=== PATIENT | male | born 1985 | race Caucasian/White ===

== ENCOUNTER 2021-06-24 16:52 | Inpatient (IN) | payer OTHER, SELFPAY ==
[2021-06-24] VITALS (14 sets, daily range): BP systolic 91–120; BP diastolic 60–73; PULSE 88–125; RESP 17–22; TEMP 37.3–37.7; O2SAT 96–100
--- NOTE | ~2021-06-24 | XR_ITS ---
EXAMINATION: XR chest 2V DATE: 06/26/2021 12:37 INDICATION: Left hemiparesis. Hypertension. TECHNIQUE: Frontal and lateral views of the chest were obtained. COMPARISON: Chest single view 06/24/2021, CT abdomen and pelvis 06/24/2021 FINDINGS: There are airspace opacities in the mid and lower lung zones, right worse than left. No ple ural effusion or pneumothorax. The heart size is normal. There are prominent paracardial fat pads. IMPRESSION: 1. Airspace opacities in the mid and lower lung zones, right worse than left with worsening on the ri ght, consistent with pneumonia. Reviewed, dictated and finalized at location A. TH CARE ADMINISTRATOR IMPRESSION: 1. Airspace opacities in the mid and lower lung zones, right worse than left wi th worsening on the right, consistent with pneumonia.
--- NOTE | ~2021-06-24 | XR_ITS ---
EXAMINATION: XR chest 1V portable EXAM DATE: 06/24/2021 19:52 INDICATION: Chest discomfort, fever and low urine output. TECHNIQUE: Portable AP frontal chest x-ray was obtained. There is no prior study for comparison. FINDINGS: There is some increased density suspected over the medial aspect of the right lower lung zo ne, could be pneumonia or atelectasis. The cardiomediastinal silhouette is prominent but magnified on this AP technique. There is no pneumothorax suspected. There are no pleural effusions. There are no osseous abnormalities identified. IMPRESSION: Possible right lower lobe segmental pneumonia or atelectasis. Reviewed, dictated and finalized at location A. TOGGLER
--- NOTE | ~2021-06-24 | NM_ITS ---
EXAMINATION: NM pulmonary perfusion DATE: 06/26/2021 12:47 INDICATION: Chest pain. TECHNIQUE: 5.15 mCi Tc-99m MAA was administered intravenously for perfusion images. Scintigraphic im ages of the chest were obtained. COMPARISON: Chest 2 views 06/26/2021 FINDINGS: Perfusion images show matched moderate sized and large defects in right lower lobe and a matched smal l defect in left lower lobe. IMPRESSION: 1. Nondiagnostic (intermediate probability for pulmonary embolism). Reviewed, dictated and finalized at location A. NCED MANUFACTURING VICE PRESIDENT
--- NOTE | ~2021-06-24 | CT_ITS ---
EXAMINATION: CT abdomen pelvis wo con EXAM DATE: 06/24/2021 23:26 INDICATION: hematuria, renal failure, and nausea. TECHNIQUE: Spiral CT of the abdomen and pelvis was performed without contrast. Axial, coronal and sag ittal images were reviewed. The dose-length product (DLP) for this examination was 920.47 mGy-cm. T he exposure was tailored according to patient size (auto mA exposure control), and iterative reconstr uction (ASIR) was used as additional dose reduction technique. There is no prior study for compariso n. FINDINGS: There is right lower lobe posterior medial segmental consolidation, appearance most consist ent with bacterial pneumonia. Please clinically correlate. There is no nephrolithiasis or hydronephro sis. The prostate is unremarkable. The bladder is unremarkable. The liver, spleen, adrenal glands and pancreas are unremarkable. Gallbladder is unremarkable. No biliary obstruction. There is no r etroperitoneal or pelvic lymphadenopathy. The appendix is normal. The stomach and small bowel are unremarkable. There is expected amount of c olonic stool. No free intraperitoneal gas. The heart is normal in size. There are no pericardial or pleural effusions. The bones are unremarkable. Several small pelvic sclerotic foci probably bone islands. IMPRESSION: 1. Right posteromedial lobe consolidation likely bacterial pneumonia. 2. No nephrolithiasis, hydronephrosis or acute intra-abdominal findings. Reviewed, dictated and finalized at location A. L PASTER
--- NOTE | 2021-06-24 19:44 | ED.GENADULT ---
HPI - General Adult General Chief complaint: Urogenital-Male <ZAY Tsang Last Filed: 06/24/21 22:49> Stated complaint: blood in urine <ZAY Tsang Last Filed: 06/24/21 22:49> Time Seen by Provider: 06/24/21 19:34 <ZAY Tsang Last Filed: 06/24/21 22:49> Source: patient <ZAY Tsang Last Filed: 06/24/21 22:49> Mode of arrival: ambulatory <ZAY Tsang Last Filed: 06/24/21 22:49> Limitations: no limitations <ZAY Tsang Last Filed: 06/24/21 22:49> History of Present Illness HPI narrative: This is a 35-year-old male that presents to the emergency department for fevers. Present over the last week. Reports he was evaluated at urgent care for this and told he had blood in his urine. Also reports some nausea. Denies sore throat, cough, abdominal pain, or vomiting. <ZAY Tsang Last Filed: 06/24/21 22:49> Related Data Home medications: Home Medications Medication Instructions Recorded Confirmed lisinopril 06/24/21 <ZAY Tsang Last Filed: 06/24/21 22:49> Allergies/adverse reactions: Allergies Allergy/AdvReac Type Severity Reaction Status Date / Time shrimp Allergy Swelling Verified 06/24/21 20:34 of Lip/Tongue/Throat <ZAY Tsang Last Filed: 06/24/21 22:49> Review of Systems Review of Systems: CONSTITUTIONAL: Reports fever ENT: Denies rhinorrhea, congestion, sore throat RESPIRATORY: Denies cough GASTROINTESTINAL: Denies abdominal pain, nausea, vomiting GENITOURINARY: Reports hematuria. Denies dysuria <ZAY Tsang Last Filed: 06/24/21 22:49> All systems reviewed & are unremarkable except as noted in HPI and below <ZAY Tsang Last Filed: 06/24/21 22:49> PMF Past Medical History Medical History: Medical History (Updated 06/24/21 @ 22:43 by Joanne Tsang PA-C) History of stroke <Joanne Tsang PA-C - Last Filed: 06/24/21 22:49> Social History Social History: Social History (Updated 06/24/21 @ 19:45 by Joanne Tsang PA-C) Smoking status: Never smoker <Joanne Tsang PA-C - Last Filed: 06/24/21 22:49> Exam Narrative: GENERAL: Well-appearing, well-nourished, and in no acute distress. HEAD: Normocephalic, atraumatic. EYES: EOMI. ENT: Nares clear, no rhinorrhea or epistaxis. Mucous membranes moist. Oropharynx without tonsillar hypertrophy exudate or other lesions. Bilateral TMs pearly ordonez non-bulging NECK: Supple. No adenopathy or masses. CHEST: Clear to auscultation. No respiratory distress. No wheezes rales or rhonchi HEART: Regular rate and rhythm. No murmur heard. Normal peripheral pulses. ABDOMEN: Soft, nontender, nondistended, normal active bowel sounds. No CVA tenderness EXTREMITIES: Normal range of motion. No edema. SKIN: Warm, dry, no rash. NEURO: Alert and oriented x3. PSYCH: Normal mood and affect <Joanne Tsang PA-C - Last Filed: 06/24/21 22:49> Course Consultations Consultation #1: Spoke with hospitalist about patient and workup who accepts admission. <Joanne Tsang PA-C - Last Filed: 06/24/21 22:49> Date: 06/24/21 <Joanne Tsang PA-C - Last Filed: 06/24/21 22:49> Time: 22:30 <Joanne Tsang PA-C - Last Filed: 06/24/21 22:49> Vital Signs Vital signs: Vital Signs Temperature 99.9 F H 06/24/21 17:03 Pulse Rate 125 H 06/24/21 17:03 Respiratory Rate 20 06/24/21 17:03 Blood Pressure 120/73 06/24/21 17:03 Pulse Oximetry 100 06/24/21 17:03 Temperature 99.1 F 06/24/21 21:56 Pulse Rate 93 06/24/21 23:39 Respiratory Rate 22 H 06/24/21 23:39 Blood Pressure 109/66 06/24/21 21:57 Pulse Oximetry 97 06/24/21 23:28 <Joanne Tsang PA-C - Last Filed: 06/24/21 22:49> Vital Signs Temperature 99.9 F H 06/24/21 17:03 Pulse Rate 125 H 06/24/21 17:03 Respiratory Rate 20 06/24/21 17:03
[2021-06-24 20:08] LABS: Add Urine Microscopic? YES; Appearance Urine Cloudy (Clear); Bacteria Urine Trace /hpf; Bilirubin Urine Negative (Negative); Blood Urine 1+ (Negative); Color Urine Amber (Yellow); Glucose Urine UA Negative (Negative); Ketones Urine Negative (Negative); Leukocyte Esterase Ur Negative LEU/UL (Negative); Mucus Urine Rare /lpf; Nitrate Urine Negative (Negative); Protein Urine 2+ mg/dL (Negative); Specific Grav Ur 1.017 (1.001-1.035); Squamous Epithelial Cell Urine Moderate /hpf (Few); WBC Urine 0-3 /hpf
[2021-06-24] MEDS: SODIUM CHLORIDE 0.9% IV 1,000 ML 999 ML IV CONT (21:18)
[2021-06-24 21:19] LABS: Basophils Percent Auto 0.4 % (0.2-1.2); Eosinophils Percent Auto 0.5 % (0-4.4); Hemoglobin 13.1 g/dL (14.0-18.0); Immature Granulocyte Absolute 0.05 K/mm3 (0.00-0.031); Immature Granulocyte Percent A 0.7 % (0-0.5); Lymphocytes Absolute Auto 1.98 K/mm3 (0.9-3.2); Lymphocytes Percent Auto 26.8 % (18.3-44.2); Mean Corpuscular HGB Conc 34.5 g/dl (32-36); Mean Corpuscular Hemoglobin 31.2 pg (26-34); Mean Corpuscular Volume 90.5 fl (80-100); Mean Platelet Volume 11.7 fl (7.4-10.4); Monocytes Absolute Auto 0.8 K/mm3 (0.1-0.6); Monocytes Percent Auto 11.4 % (2.6-8.5); Neutrophils Absolute Auto 4.5 K/mm3 (1.3-6.7); Neutrophils Percent Auto 60.2 % (45.5-73.1); Platelet Count Result 188 k/mm3 (150-375); Red Cell Distribution Width 13.4 % (11.5-14.5); White Blood Count 7.4 K/mm3 (4.5-10.0)
[2021-06-24 21:30] LABS: Lactic Acid Reflex 1.1 mmol/L (0.7-2.1)
[2021-06-24 21:56] LABS: Alanine Aminotransferase 81 U/L (4-50); Albumin Level 4.6 g/dL (3.5-5.1); Alkaline Phosphatase 106 U/L (38-126); Anion Gap 14 mmol/L (8-16); Aspartate Amino Transferase 122 U/L (17-59); Bilirubin,Total 1.8 mg/dL (0.2-1.3); Blood Urea Nitrogen 40 mg/dL (9-20); CRP 17.8 mg/dL (<1.0); Calcium 9.6 mg/dL (8.4-10.2); Carbon Dioxide 21 mmol/L (22-30); Chloride 97 mmol/L (98-107); Estimated CRCL calculation 26 ml/min; Estimated Glomerular Filt Rate 18; Glucose 113 mg/dL (65-110); Lipase 441 U/L (23-300); Potassium 4.5 mmol/L (3.4-5.0); Sodium 132 mmol/L (137-145)
--- NOTE | 2021-06-24 22:48 | PC.NURSE ---
Called phlebotomy to come draw cultures. Patient is tough stick.
--- NOTE | 2021-06-24 23:01 | PC.NURSE ---
Patients IV infiltrated. IV removed.
--- NOTE | 2021-06-24 23:11 | PC.NURSE ---
biological sciences instructor aware of no OV at this time. Phlebotomy in room at this time.
--- NOTE | 2021-06-24 23:24 | PC.NURSE ---
Patient in CT at this time. grinding supervisor notified of no IV access at this time. Awaiting patient to return for resort housekeeper to attempt IV placement.
--- NOTE | 2021-06-24 23:37 | PC.NURSE ---
evening or night nurse supervisor in room attempting IV placement.
[2021-06-25] VITALS (11 sets, daily range): BP systolic 92–123; BP diastolic 52–73; PULSE 80–91; RESP 14–27; TEMP 36.1–37.7; O2SAT 95–100
[2021-06-25] MEDS: SODIUM CHLORIDE 0.9% IV 1,000 ML 999 ML IV CONT (00:16)
--- NOTE | 2021-06-25 02:05 | ADMGEN ---
This patient, Lul Bonilla, was admitted to [facility] Surg Room 329-01. Patient/family oriented to hospital policies and general routines including ID bracelet, bed and alarms, visiting hours, pain management, procedures, bathroom and other care routines, personal items, smoking policy, room service/diet, and visiting hours. Information on how to activate the Rapid Response Team has been discussed. Patient/Family are encouraged to report perceived risks to care and to ask questions if they do not understand what they are told or what they should do.
--- NOTE | 2021-06-25 07:15 | PM.IMHP ---
H&P: HPI History of Present Illness Date/Time: 06/25/21 0715 Chief Complaint: fevers, nausea, and hematuria Narrative: Patient is a 35-year-old male with a past medical history of hypertension who presented to the ED for fevers and hematuria. Patient stated all this started about Saturday when he started getting fevers And nausea. Patient denies abdominal pain constipation or diarrhea. Patient also stated that he did notice that his urine started turning brown and had blood in it. Patient went to the urgent care which she affirmed that he had blood in his urine. Patient denies any sore throat, cough, abdominal pain, shortness of breath. Since admission patient stated that he has been urinating okay his urine is now a bright cloudy yellow. Patient did state that he had some urgency and frequency earlier in the week however that has subsided. Patient denies being tired and weak or body aches. Renal function is is very elevated with BUN and creatinine 40/3.8 at admission and currently 39/3.5. patient denies being COVID vaccinated this time however inflammatory markers are elevated and COVID swab is pending. Patient states that he has been drinking plenty of fluids. Patient is being admitted to the hospitalist service in observation Review of Systems Review of Systems: All systems reviewed & are unremarkable except as noted in HPI and below PMFSH Past Medical History Medical History (Updated 06/25/21 @ 11:53 by CANDACE Winkler) History of stroke HTN (hypertension) Family History Family History (Updated 06/25/21 @ 11:40 by CANDACE Winkler) Mother Heart disease Hypertension Social History Social History (Updated 06/25/21 @ 11:42 by CANDACE Winkler) Social History: Patient is 35 years old who denies having kids or pets at this time. He wishes to make his mom Simran is surrogate. Patient denies smoking however he does drink every other day about 2 wine coolers at a time. Patient also denies drug use. Smoking status: Never smoker Second hand tobacco smoke exposure: No Alcohol intake: current Alcohol use details: 2 wine coolers every other day Substance use: never Substance use type: does not use Living arrangements: alone Occupation/Education: occupation Additional occupation/education comments: Works in the cooler at [employer] Gender identity (if verbalized by the patient): Male Sexual Orientation (if Verbalized by the Patient): Straight or Heterosexual Spiritual care concerns: No Agree to blood products: Yes Meds Home Medications and Allergies Home Medications Medication Instructions Recorded Confirmed Type lisinopril 40 mg PO DAILY 06/24/21 06/25/21 History Allergies Allergy/AdvReac Type Severity Reaction Status Date / Time shrimp Allergy Swelling Verified 06/24/21 20:34 of Lip/Tongue/Throat Vital Signs Vital Signs - 24 hr 06/24/21 17:03 06/24/21 20:36 06/24/21 20:53 Temperature 37.7 C H 37.5 C Pulse Rate 125 H 107 H 114 H Respiratory Rate 20 20 18 Blood Pressure 120/73 91/60 L Pulse Oximetry 100 96 06/24/21 21:00 06/24/21 21:15 06/24/21 21:30 Temperature Pulse Rate 114 H 108 H 106 H Respiratory Rate 20 22 H 17 Blood Pressure Pulse Oximetry 96 06/24/21 21:45 06/24/21 21:46 06/24/21 21:56 Temperature 37.3 C 37.3 C Pulse Rate 104 H Respiratory Rate 19 Blood Pressure Pulse Oximetry 97 06/24/21 21:57 06/24/21 22:49 06/24/21 23:28 Temperature Pulse Rate 97 95 Respiratory Rate 20 17 Blood Pressure 109/66 Pulse Oximetry 96 98 97 06/24/21 23:39 06/24/21 23:57 06/25/21 00:00 Temperature Pulse Rate 93 88 89 Respiratory Rate 22 H 17 17 Blood Pressure Pulse Oximetry 06/25/21 00:15 06/25/21 00:16 06/25/21 00:30 Temperature Pulse Rate 81 80 85 Respiratory Rate 18 26 H 27 H Blood Pressure 92/55 L Pulse Oximetry 06/25/21 00:45 06/25/21 00:50
[2021-06-25 08:01] LABS: Hematocrit 34.4 % (42.0-52.0); Hemoglobin 11.5 g/dL (14.0-18.0); Mean Corpuscular HGB Conc 33.4 g/dl (32-36); Mean Corpuscular Hemoglobin 31.4 pg (26-34); Mean Platelet Volume 11.4 fl (7.4-10.4); Platelet Count Result 182 k/mm3 (150-375); Red Blood Count 3.66 M/mm3 (4.6-6.20); Red Cell Distribution Width 13.3 % (11.5-14.5); White Blood Count 7.1 K/mm3 (4.5-10.0)
[2021-06-25 08:09] LABS: Anion Gap 13 mmol/L (8-16); Blood Urea Nitrogen 39 mg/dL (9-20); Calcium 8.1 mg/dL (8.4-10.2); Carbon Dioxide 19 mmol/L (22-30); Chloride 102 mmol/L (98-107); Estimated CRCL calculation 28 ml/min; Estimated Glomerular Filt Rate 20; Glucose 99 mg/dL (65-110); Potassium 3.9 mmol/L (3.4-5.0); Sodium 134 mmol/L (137-145)
[2021-06-25 13:01] LABS: Alanine Aminotransferase 51 U/L (4-50); Albumin Level 3.5 g/dL (3.5-5.1); Alkaline Phosphatase 78 U/L (38-126); Aspartate Amino Transferase 81 U/L (17-59); Bilirubin,Total 1.2 mg/dL (0.2-1.3); Lipase 639 U/L (23-300)
[2021-06-25 14:14] LABS: SARS-CoV-2 RNA PCR Negative
[2021-06-26 05:39] VITALS: BP 102/62; PULSE 93; RESP 18; TEMP 36.8; O2SAT 97
[2021-06-26 06:58] LABS: Basophils Percent Auto 0.3 % (0.2-1.2); Eosinophils Absolute Auto 0.1 K/mm3 (0-0.3); Eosinophils Percent Auto 2.2 % (0-4.4); Hematocrit 30.9 % (42.0-52.0); Hemoglobin 10.2 g/dL (14.0-18.0); Immature Granulocyte Absolute 0.04 K/mm3 (0.00-0.031); Immature Granulocyte Percent A 0.7 % (0-0.5); Lymphocytes Percent Auto 26.9 % (18.3-44.2); Mean Corpuscular Hemoglobin 30.5 pg (26-34); Mean Corpuscular Volume 92.5 fl (80-100); Mean Platelet Volume 11.2 fl (7.4-10.4); Monocytes Absolute Auto 0.7 K/mm3 (0.1-0.6); Neutrophils Absolute Auto 3.4 K/mm3 (1.3-6.7); Neutrophils Percent Auto 57.9 % (45.5-73.1); Platelet Count Result 244 k/mm3 (150-375); Red Blood Count 3.34 M/mm3 (4.6-6.20); Red Cell Distribution Width 13.2 % (11.5-14.5); White Blood Count 5.9 K/mm3 (4.5-10.0)
[2021-06-26 07:32] LABS: Alanine Aminotransferase 53 U/L (4-50); Albumin Level 3.7 g/dL (3.5-5.1); Alkaline Phosphatase 87 U/L (38-126); Anion Gap 8 mmol/L (8-16); Aspartate Amino Transferase 72 U/L (17-59); Bilirubin,Total 0.9 mg/dL (0.2-1.3); Blood Urea Nitrogen 25 mg/dL (9-20); CRP 7.7 mg/dL (<1.0); Calcium 8.8 mg/dL (8.4-10.2); Carbon Dioxide 24 mmol/L (22-30); Chloride 106 mmol/L (98-107); Estimated CRCL calculation 49 ml/min; Estimated Glomerular Filt Rate 38; Glucose 106 mg/dL (65-110); Lactate Dehydrogenase 926 U/L (313-618); Lipase 543 U/L (23-300); Magnesium 2.6 mg/dL (1.6-2.3); Sodium 138 mmol/L (137-145)
[2021-06-26 07:41] LABS: D Dimer 2.74 ug/mL (<0.48)
--- NOTE | 2021-06-26 09:45 | P.PNIM_ITS ---
Progress Note: A&P Assessment and Plan (1) HTN (hypertension): Code(s): I10 - Essential (primary) hypertension Status: Acute Assessment and Plan: * Current Blood pressure is 114/71 * Was hypotensive in the ed * Hold lisinopril due to renal function and hypotension * Trend BP * Add PRN if indicated (2) Pneumonia: Qualifiers: Laterality: right Lung location: lower lobe of lung Pneumonia type: due to unspecified organism Qualified Code(s): J18.9 - Pneumonia, unspecified organism Code(s): J18.9 - Pneumonia, unspecified organism Status: Acute Assessment and Plan: * Chest xray Possible right lower lobe segmental pneumonia or atelectasis. * Ct shows Right posteromedial lobe consolidation likely bacterial pneumonia. * Azithromycin and ceftriaxone started * No resp symptoms * Continue to trend symptoms (3) Acute kidney injury: Code(s): N17.9 - Acute kidney failure, unspecified Status: Acute Assessment and Plan: * BUN/CR elevated upon admission 40/3.80 * Currently 25/2.0 * Got 2L of fluid in the ed * Start fluids for hydration LR at 150 * Trend labs * Labs in the am (4) Person under investigation for COVID-19: Code(s): Z20.822 - Contact with and (suspected) exposure to COVID-19 Status: Acute Assessment and Plan: * Not vaccinated * No respiratory symptoms * Chest XR shows a PNA * Covid swab pending * Inflammatory makers elevated Dimer 2.74, Ferritin >2000, CRP 2.6, LDH 926, CRP 7.7 (5) Hematuria: Code(s): R31.9 - Hematuria, unspecified Status: Acute Assessment and Plan: * Found on the UA * Probably related to dehydration * Seems to be resolving * No kidney stones noted on CT * Trend urine output (6) Sepsis: Code(s): A41.9 - Sepsis, unspecified organism Status: Acute Assessment and Plan: * Meets SIRS criteria with fever, tachycardia, and hypotension * Lactic acid is 1.1 * Rehydration in the ed * Antibiotics started * Chest xray shows PNA * Trend vitals * Blood cultures NGTD (7) Transaminitis: Code(s): R74.01 - Elevation of levels of liver transaminase levels Status: Acute Assessment and Plan: * Liver enzymes elevated AST/ALT 72/53 * Hep panel in the am * Consider RUQ ultrasound * Trend labs (8) Nausea: Code(s): R11.0 - Nausea Status: Acute Assessment and Plan: * Seems to be resolved * Add zofran (9) Elevated lipase: Code(s): R74.8 - Abnormal levels of other serum enzymes Status: Acute Assessment and Plan: * Lipase elevated 441 up to 543 * CT does not show any pancreatitis * Trend labs * IV fluid started (10) Elevated d-dimer: Code(s): R79.89 - Other specified abnormal findings of blood chemistry Status: Acute Assessment and Plan: * D.Dimer elevated at 2.45 * VQ scan shows intermediate risk for PE * Lovenox * Don't think that there is a PE since patient does not have chest pain, shortness of breath, or tachycardia Subjective Date/time seen: 06/26/21 0945 Interval history: Date/Time: 06/25/21 0715 Narrative: Patient is a 35-year-old male with a past medical history of hypertension who presented to the ED for fevers and
--- NOTE | 2021-06-26 09:45 | PM.IMPN ---
Progress Note: A&P Assessment and Plan (1) HTN (hypertension): Code(s): I10 - Essential (primary) hypertension Status: Acute Assessment and Plan: Current Blood pressure is 114/71 Was hypotensive in the ed Hold lisinopril due to renal function and hypotension Trend BP Add PRN if indicated (2) Pneumonia: Qualifiers: Laterality: right Lung location: lower lobe of lung Pneumonia type: due to unspecified organism Qualified Code(s): J18.9 - Pneumonia, unspecified organism Code(s): J18.9 - Pneumonia, unspecified organism Status: Acute Assessment and Plan: Chest xray Possible right lower lobe segmental pneumonia or atelectasis. Ct shows Right posteromedial lobe consolidation likely bacterial pneumonia. Azithromycin and ceftriaxone started No resp symptoms Continue to trend symptoms (3) Acute kidney injury: Code(s): N17.9 - Acute kidney failure, unspecified Status: Acute Assessment and Plan: BUN/CR elevated upon admission 40/3.80 Currently 25/2.0 Got 2L of fluid in the ed Start fluids for hydration LR at 150 Trend labs Labs in the am (4) Person under investigation for COVID-19: Code(s): Z20.822 - Contact with and (suspected) exposure to COVID-19 Status: Acute Assessment and Plan: Not vaccinated No respiratory symptoms Chest XR shows a PNA Covid swab pending Inflammatory makers elevated Dimer 2.74, Ferritin >2000, CRP 2.6, LDH 926, CRP 7.7 (5) Hematuria: Code(s): R31.9 - Hematuria, unspecified Status: Acute Assessment and Plan: Found on the UA Probably related to dehydration Seems to be resolving No kidney stones noted on CT Trend urine output (6) Sepsis: Code(s): A41.9 - Sepsis, unspecified organism Status: Acute Assessment and Plan: Meets SIRS criteria with fever, tachycardia, and hypotension Lactic acid is 1.1 Rehydration in the ed Antibiotics started Chest xray shows PNA Trend vitals Blood cultures NGTD (7) Transaminitis: Code(s): R74.01 - Elevation of levels of liver transaminase levels Status: Acute Assessment and Plan: Liver enzymes elevated AST/ALT 72/53 Hep panel in the am Consider RUQ ultrasound Trend labs (8) Nausea: Code(s): R11.0 - Nausea Status: Acute Assessment and Plan: Seems to be resolved Add zofran (9) Elevated lipase: Code(s): R74.8 - Abnormal levels of other serum enzymes Status: Acute Assessment and Plan: Lipase elevated [address] does not show any pancreatitis Trend labs IV fluid started (10) Elevated d-dimer: Code(s): R79.89 - Other specified abnormal findings of blood chemistry Status: Acute Assessment and Plan: D.Dimer elevated at 2.45 VQ scan shows intermediate risk for PE Lovenox Don't think that there is a PE since patient does not have chest pain, shortness of breath, or tachycardia Subjective Date/time seen: 06/26/21944 Interval history: Date/Time: 06/25/21714 Narrative: Patient is a 35-year-old male with a past medical history of hypertension who presented to the ED for fevers and hematuria. Patient stated all this started about Saturday when he started getting fevers And nausea. Patient denies abdominal pain constipation or diarrhea. Patient also stated that he did notice that his urine started turning brown and had blood in it. Patient went to the urgent care which she affirmed that he had blood in his urine. Patient denies any sore throat, cough, abdominal pain, shortness of breath. Since admission patient stated that he has been urinating okay his urine is now a bright cloudy yellow. Patient did state that he had some urgency and frequency earlier in the week however that has subsided. Patient denies being tir
[2021-06-26 10:01] LABS: Ferritin > 2000.00 ng/mL (17.9-464)
[2021-06-26] MEDS: LACTATED RINGERS 1,000 ML 100 ML IV CONT ×2 (10:28→15:28)
[2021-06-26 14:11] VITALS: BP 114/71; PULSE 95; RESP 18; TEMP 36.1; O2SAT 100
[2021-06-26] MEDS: LACTATED RINGERS 1,000 ML 150 ML IV CONT (19:02)
[2021-06-26 22:00] VITALS: BP 120/73; PULSE 85; RESP 16; TEMP 36.4; O2SAT 100
[2021-06-27] MEDS: LACTATED RINGERS 1,000 ML 150 ML IV CONT ×2 (03:01→10:13)
[2021-06-27 06:00] VITALS: BP 105/85; PULSE 83; RESP 18; TEMP 37.3; O2SAT 97
[2021-06-27 07:15] LABS: Alanine Aminotransferase 51 U/L (4-50); Albumin Level 3.5 g/dL (3.5-5.1); Alkaline Phosphatase 81 U/L (38-126); Anion Gap 7 mmol/L (8-16); Aspartate Amino Transferase 72 U/L (17-59); Bilirubin,Total 0.8 mg/dL (0.2-1.3); Blood Urea Nitrogen 15 mg/dL (9-20); CRP 5.7 mg/dL (<1.0); Calcium 8.9 mg/dL (8.4-10.2); Carbon Dioxide 25 mmol/L (22-30); Chloride 107 mmol/L (98-107); Estimated CRCL calculation 74 ml/min; Estimated Glomerular Filt Rate > 60; Glucose 100 mg/dL (65-110); Lactate Dehydrogenase 827 U/L (313-618); Lipase 513 U/L (23-300); Magnesium 2.1 mg/dL (1.6-2.3); Potassium 4.1 mmol/L (3.4-5.0); Sodium 139 mmol/L (137-145)
[2021-06-27 07:33] LABS: Basophils Percent Auto 0.3 % (0.2-1.2); Eosinophils Absolute Auto 0.2 K/mm3 (0-0.3); Eosinophils Percent Auto 3.2 % (0-4.4); Hemoglobin 9.9 g/dL (14.0-18.0); Immature Granulocyte Absolute 0.06 K/mm3 (0.00-0.031); Immature Granulocyte Percent A 0.8 % (0-0.5); Lymphocytes Absolute Auto 2.31 K/mm3 (0.9-3.2); Mean Corpuscular Hemoglobin 30.9 pg (26-34); Mean Corpuscular Volume 93.8 fl (80-100); Mean Platelet Volume 11.2 fl (7.4-10.4); Monocytes Absolute Auto 0.6 K/mm3 (0.1-0.6); Monocytes Percent Auto 8.2 % (2.6-8.5); Neutrophils Absolute Auto 4.2 K/mm3 (1.3-6.7); Neutrophils Percent Auto 56.5 % (45.5-73.1); Platelet Count Result 332 k/mm3 (150-375); Red Cell Distribution Width 13.4 % (11.5-14.5); White Blood Count 7.5 K/mm3 (4.5-10.0)
[2021-06-27 07:50] LABS: D Dimer 2.05 ug/mL (<0.48)
[2021-06-27 07:52] LABS: Hepatitis B Surface Antigen Negative (Negative)
[2021-06-27 07:58] LABS: HAV RESULT Negative (Negative); Hepatitis B Core IgM Result Negative (Negative)
[2021-06-27 08:00] VITALS: BP 100/66; PULSE 93; RESP 20; TEMP 37.2; O2SAT 99
[2021-06-27 08:09] LABS: Hepatitis C Virus Antibody Negative (Negative)
[2021-06-27] MEDS: ENOXAPARIN 40 MG/0.4 ML SYRINGE SUB-Q (10:12)
--- NOTE | 2021-06-27 10:15 | P.DS_ITS ---
DS: Admitting Diagnosis Discharge Date 06/27/21 1015 Admitting Diagnosis Acute renal failure, pneumonia DS: Discharge Diagnosis Discharge Diagnosis (1) HTN (hypertension): Code(s): I10 - Essential (primary) hypertension Status: Acute Assessment and Plan: * Current Blood pressure is 114/71 * Was hypotensive in the ed * Hold lisinopril due to renal function and hypotension * Trend BP * Add PRN if indicated (2) Pneumonia: Qualifiers: Laterality: right Lung location: lower lobe of lung Pneumonia type: due to unspecified organism Qualified Code(s): J18.9 - Pneumonia, unspecified organism Code(s): J18.9 - Pneumonia, unspecified organism Status: Acute Assessment and Plan: * Chest xray Possible right lower lobe segmental pneumonia or atelectasis. * Ct shows Right posteromedial lobe consolidation likely bacterial pneumonia. * Azithromycin and ceftriaxone started * No resp symptoms * Continue to trend symptoms (3) Acute kidney injury: Code(s): N17.9 - Acute kidney failure, unspecified Status: Acute Assessment and Plan: * BUN/CR elevated upon admission 40/3.80 * Currently 25/2.0 * Got 2L of fluid in the ed * Start fluids for hydration LR at 150 * Trend labs * Labs in the am (4) Person under investigation for COVID-19: Code(s): Z20.822 - Contact with and (suspected) exposure to COVID-19 Status: Acute Assessment and Plan: * Not vaccinated * No respiratory symptoms * Chest XR shows a PNA * Covid swab pending * Inflammatory makers elevated Dimer 2.74, Ferritin >2000, CRP 2.6, LDH 926, CRP 7.7 (5) Hematuria: Code(s): R31.9 - Hematuria, unspecified Status: Acute Assessment and Plan: * Found on the UA * Probably related to dehydration * Seems to be resolving * No kidney stones noted on CT * Trend urine output (6) Sepsis: Code(s): A41.9 - Sepsis, unspecified organism Status: Acute Assessment and Plan: * Meets SIRS criteria with fever, tachycardia, and hypotension * Lactic acid is 1.1 * Rehydration in the ed * Antibiotics started * Chest xray shows PNA * Trend vitals * Blood cultures NGTD (7) Transaminitis: Code(s): R74.01 - Elevation of levels of liver transaminase levels Status: Acute Assessment and Plan: * Liver enzymes elevated AST/ALT 72/53 * Hep panel in the am * Consider RUQ ultrasound * Trend labs (8) Nausea: Code(s): R11.0 - Nausea Status: Acute Assessment and Plan: * Seems to be resolved * Add zofran (9) Elevated lipase: Code(s): R74.8 - Abnormal levels of other serum enzymes Status: Acute Assessment and Plan: * Lipase elevated 441 up to 543 * CT does not show any pancreatitis * Trend labs * IV fluid started (10) Elevated d-dimer: Code(s): R79.89 - Other specified abnormal findings of blood chemistry Status: Acute Assessment and Plan: * D.Dimer elevated at 2.45 * VQ scan shows intermediate risk for PE * Lovenox * Don't think that there is a PE since patient does not have chest pain, shortness of breath, or tachycardia Talked to Dr. Gray about finding. He agrees that symptoms do not indicate a PE at this time. DS: S
--- NOTE | 2021-06-27 10:15 | PM.DS ---
DS: Admitting Diagnosis Discharge Date 06/27/21 1015 Admitting Diagnosis Acute renal failure, pneumonia DS: Discharge Diagnosis Discharge Diagnosis (1) HTN (hypertension): Code(s): I10 - Essential (primary) hypertension Status: Acute Assessment and Plan: Current Blood pressure is 114/71 Was hypotensive in the ed Hold lisinopril due to renal function and hypotension Trend BP Add PRN if indicated (2) Pneumonia: Qualifiers: Laterality: right Lung location: lower lobe of lung Pneumonia type: due to unspecified organism Qualified Code(s): J18.9 - Pneumonia, unspecified organism Code(s): J18.9 - Pneumonia, unspecified organism Status: Acute Assessment and Plan: Chest xray Possible right lower lobe segmental pneumonia or atelectasis. Ct shows Right posteromedial lobe consolidation likely bacterial pneumonia. Azithromycin and ceftriaxone started No resp symptoms Continue to trend symptoms (3) Acute kidney injury: Code(s): N17.9 - Acute kidney failure, unspecified Status: Acute Assessment and Plan: BUN/CR elevated upon admission 40/3.80 Currently 25/2.0 Got 2L of fluid in the ed Start fluids for hydration LR at 150 Trend labs Labs in the am (4) Person under investigation for COVID-19: Code(s): Z20.822 - Contact with and (suspected) exposure to COVID-19 Status: Acute Assessment and Plan: Not vaccinated No respiratory symptoms Chest XR shows a PNA Covid swab pending Inflammatory makers elevated Dimer 2.74, Ferritin >2000, CRP 2.6, LDH 926, CRP 7.7 (5) Hematuria: Code(s): R31.9 - Hematuria, unspecified Status: Acute Assessment and Plan: Found on the UA Probably related to dehydration Seems to be resolving No kidney stones noted on CT Trend urine output (6) Sepsis: Code(s): A41.9 - Sepsis, unspecified organism Status: Acute Assessment and Plan: Meets SIRS criteria with fever, tachycardia, and hypotension Lactic acid is 1.1 Rehydration in the ed Antibiotics started Chest xray shows PNA Trend vitals Blood cultures NGTD (7) Transaminitis: Code(s): R74.01 - Elevation of levels of liver transaminase levels Status: Acute Assessment and Plan: Liver enzymes elevated AST/ALT 72/53 Hep panel in the am Consider RUQ ultrasound Trend labs (8) Nausea: Code(s): R11.0 - Nausea Status: Acute Assessment and Plan: Seems to be resolved Add zofran (9) Elevated lipase: Code(s): R74.8 - Abnormal levels of other serum enzymes Status: Acute Assessment and Plan: Lipase elevated [address] does not show any pancreatitis Trend labs IV fluid started (10) Elevated d-dimer: Code(s): R79.89 - Other specified abnormal findings of blood chemistry Status: Acute Assessment and Plan: D.Dimer elevated at 2.45 VQ scan shows intermediate risk for PE Lovenox Don't think that there is a PE since patient does not have chest pain, shortness of breath, or tachycardia Talked to Dr. Gray about finding. He agrees that symptoms do not indicate a PE at this time. DS: Summary Hospital Course Hospital Course: Patient is a 35-year-old male with past medical history hypertension and stroke who appeared to the ED with complaints fevers and hematuria with nausea. Upon admission patient was noted to have a BUN creatinine of 40/3.8. Patient was given fluids and this has corrected and is currently 15/1.30. Chest x-ray also get indicated pneumonia which he was started on azithromycin and ceftriaxone. Patient also complained of hematuria which has seemed to clear up on its own. Patient did meet sepsis criteria with fevers, tachycardia, hypotension. Blood cultures have showed no growth to date. Patient was tested for
[2021-06-27 12:00] VITALS: BP 120/86; PULSE 115; RESP 20; TEMP 36.1; O2SAT 95
== END 2021-06-27 13:45 | disposition home or self-care (01) | DRG 871 ==
LOC: ANHED 22:43 → ANH3MEDSUR 06-25 00:10
PROVIDERS: Physician Assistant; Admitting Provider Internal Medicine; Emergency Provider Emergency Medicine; PCP Internal Medicine; Visit Provider Nurse Practitioner
DX: A41.9 Sepsis, unspecified organism (principal); J18.9 Pneumonia, unspecified organism; J15.9 Unspecified bacterial pneumonia; J98.11 Atelectasis; N17.9 Acute kidney failure, unspecified; Z20.822 Contact with and (suspected) exposure to COVID-19; R31.9 Hematuria, unspecified; E86.0 Dehydration; R74.8 Abnormal levels of other serum enzymes; I10 Essential (primary) hypertension; Z86.73 Personal history of transient ischemic attack (TIA), and cerebral infarction without residual deficits
CPT/HCPCS: 36415; 71045; 71046; 74176; 78580; 80048; 80053; 80074; 80076; 81001; 82248; 82728; 83605; 83615; 83690; 83735; 85025; 85027; 85380; 86140; 87040; 87077; 87186; 87804; 96361; 96365; 96366; 96367; 96374; 99285; A9540; C9803; G0378; J0131; J0456; J0696; J1650; J7030; J7120; U0003; U0005

== ENCOUNTER 2022-09-19 19:18 | Emergency (ER) | payer OTHER, SELFPAY ==
--- NOTE | ~2022-09-19 | XR_ITS ---
EXAMINATION: XR knee LT min 4V DATE: 09/19/2022 20:25 INDICATION: Left knee pain TECHNIQUE: Four views of the left knee were obtained. COMPARISON: None. FINDINGS: There is no acute fracture. There is orthopedic hardware traversing a healed fracture of th e left distal femur. There is mild tricompartmental osteoarthritis characterized by tiny marginal ost eophytes. There is a small knee joint effusion. Soft tissues are unremarkable. IMPRESSION: 1. No acute osseous abnormality. Reviewed, dictated and finalized at location F.
[2022-09-19 19:21] VITALS: BP 204/148; PULSE 108; RESP 14; TEMP 36.8; O2SAT 98
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
[2022-09-19 19:58] VITALS: BP 206/145; PULSE 93; RESP 15; O2SAT 98
[2022-09-19] MEDS: lisinopriL 20 MG TABLET 40 MG PO (20:09)
[2022-09-19 20:56] VITALS: BP 182/126; PULSE 91; RESP 15; O2SAT 96
[2022-09-19 21:12] VITALS: BP 167/123; PULSE 93; RESP 15; O2SAT 97
== END 2022-09-19 22:03 | disposition home or self-care (01) ==
PROVIDERS: Emergency Provider Emergency Medicine; PCP Internal Medicine
DX: S86.912A Strain of unspecified muscle(s) and tendon(s) at lower leg level, left leg, initial encounter (principal); I10 Essential (primary) hypertension; Z86.73 Personal history of transient ischemic attack (TIA), and cerebral infarction without residual deficits; X58.XXXA Exposure to other specified factors, initial encounter
CPT/HCPCS: 73564; 99283; A9270